=== PATIENT | female | born 1940 | race Two or more races ===

== ENCOUNTER 2016-09-30 15:58 | Emergency (ER) | payer MEDICARE, OTHER ==
[~2016-09-30] VITALS: Ht 170.2 cm; Wt 77.1 kg
[2016-09-30 16:04] VITALS: BP 113/52
[2016-09-30] MEDS ORDERED: HYDROCODONE/APAP 5/325MG 1 EACH TABLET PO ONE (16:30)
[2016-09-30] MEDS ORDERED: HYDROCODONE/APAP 5/325MG 1 EACH TABLET ONE (16:30)
[2016-09-30] MEDS ORDERED: LIDOCAINE 1% INJ 50 ML MDV IJ ONE (17:30)
== END 2016-09-30 18:10 | disposition home or self-care (01) ==
LOC: ER 16:00
DX: S63.284A Dislocation of proximal interphalangeal joint of right ring finger, initial encounter (principal); S62.614A Displaced fracture of proximal phalanx of right ring finger, initial encounter for closed fracture; S80.02XA Contusion of left knee, initial encounter; S70.02XA Contusion of left hip, initial encounter; I10 Essential (primary) hypertension; F32.9 Major depressive disorder, single episode, unspecified; Z88.0 Allergy status to penicillin; W01.0XXA Fall on same level from slipping, tripping and stumbling without subsequent striking against object, initial encounter; Y93.89 Activity, other specified; Y92.89 Other specified places as the place of occurrence of the external cause; Y99.9 Unspecified external cause status
CPT/HCPCS: 26770; 72125; 72170; 73140; 73564; 99284; A4606; J3490; Z7610

== ENCOUNTER 2017-03-18 18:35 | Emergency (ER) | payer MEDICARE, OTHER ==
[~2017-03-18] VITALS: Ht 167.6 cm; Wt 70.3 kg
--- NOTE | 2017-03-18 18:50 | NUR ---
bib family from home dt fever x 5 days and coughing out blood x 2 days. Patient is aao4. Appears in no apparent distress, respiration even and unlabored. Skin is warm to touch and non diaphoretic. Afebrile at this time. Gowned pt and placed on tele monitor. vss
--- NOTE | 2017-03-18 18:53 | NUR ---
paint laboratory technician at
--- NOTE | 2017-03-18 18:57 | NUR ---
Urine sample obtained, sent.
--- NOTE | 2017-03-18 18:59 | NUR ---
ELECTRICAL SOFTWARE ENGINEER AT
[2017-03-18] MEDS ORDERED: IV NS 0.9% 1,000 ML BAG IV ONE (19:00)
--- NOTE | 2017-03-18 19:00 | NUR ---
PSYCHOLOGIST EXPERIMENTAL AT BS
--- NOTE | 2017-03-18 19:00 | NUR ---
IV ACCESS STARTED, BLOOD DRAWN FOR LABS. PT MEDICATED ORDERED.
[2017-03-18 19:04] LABS: BASOPHILS # (AUTO) 0.1 /CMM (0.0-0.2); BASOPHILS % (AUTO) 0.9 % (0.0-2.0); EOSINOPHILS # (AUTO) 0.1 /CMM (0.0-0.7); EOSINOPHILS % (AUTO) 0.6 % (0.0-6.0); HEMATOCRIT 47 % (33-45); HEMOGLOBIN 14.8 g/dL (11.5-14.8); LYMPHOCYTES # (AUTO) 2.4 /CMM (0.8-4.8); LYMPHOCYTES % (AUTO) 18.6 % (20.0-44.0); MEAN CORPUSCULAR HEMOGLOBIN 29 PG (26.0-33.0); MEAN CORPUSCULAR HGB CONC 32 g/dl (31.0-36.0); MEAN CORPUSCULAR VOLUME 92 fL (82-100); MONOCYTES # (AUTO) 1.4 /CMM (0.1-1.30); MONOCYTES % (AUTO) 11.1 % (2.0-12.0); NEUTROPHILS # (AUTO) 8.7 /CMM (1.8-8.9); NEUTROPHILS % (AUTO) 68.8 % (43.0-81.0); PLATELET COUNT (AUTO) 340 /CMM (150-450); RDW COEFFICIENT OF VARIATION 13.4 (11.5-15.0); RED BLOOD CELL COUNT(AUTO) 5.09 MIL/uL (4.0-5.2); WHITE BLOOD COUNT (AUTO) 12.7 K/uL (4.3-11.0)
[2017-03-18 19:06] LABS: APPEARANCE,URINE Clear (CLEAR); BILIRUBIN,URINE Negative (NEGATIVE); BLOOD, URINE Large Ery/uL (NEGATIVE); COLOR,URINE Yellow (YELLOW); KETONES,URINE Negative (NEGATIVE); LEUKOCYTE ESTERASE ,URINE Negative (NEGATIVE); NITRITE, URINE Negative (NEGATIVE); PH,URINE 5.5 (5.0-8.0); PROTEIN,URINE >=300 mg/dl (NEGATIVE); UGLUCOSE Negative (NEGATIVE); UROBILINOGEN,URINE 0.2 EU/dL (0.2)
[2017-03-18 19:15] LABS: CALCIUM, SERUM 8.8 mg/dL (8.5-10.1); CARBON DIOXIDE 32 mmol/L (21-32); CHLORIDE 107 mmol/L (98-107); CREATININE 0.9 mg/dL (0.6-1.3); GLUCOSE 96 mg/dL (74-106); POTASSIUM 3.7 mmol/L (3.5-5.1); SODIUM SERUM 144 mmol/L (136-145); UREA NITROGEN, BLOOD 15 mg/dL (7-18)
[2017-03-18 19:20] LABS: ALANINE AMINOTRANSFERASE 26 U/L (12-78); ALBUMIN 3.5 g/dL (3.4-5.0); ALKALINE PHOSPHATASE 70 U/L (46-116); ASPARTATE AMINOTRANSFERASE 20 U/L (15-37); BILIRUBIN,DIRECT 0.2 mg/dL (0.0-0.2); BILIRUBIN,TOTAL 0.8 mg/dL (0.2-1.0); INR 3.97 (0.87-1.13); PROTHROMBIN TIME 44.4 SECS (9.5-12.7); TOTAL PROTEIN, SERUM 8.1 g/dL (6.4-8.2)
[2017-03-18 19:22] LABS: TROPONIN I < 0.017 ng/mL (0.00-0.056)
[2017-03-18 19:24] LABS: BACTERIA,URINE Few /HPF (None Seen); SQUAMOUS EPITHELIAL CELL,UR Few /HPF (None Seen)
--- NOTE | 2017-03-18 19:27 | NUR ---
PT REPORT RECIVED FROM OSVALDO CASEY FOR TIERNEY, PT IS IN BED, ON MONITOR, IN GOWN, PT FAMILY AT BEDSIDE, WILL CONTINUE TO MONITOR.
--- NOTE | 2017-03-18 19:52 | NUR ---
PT BP IS HIGH, MD MADE AWARE NO ORDERS AT THIS TIME WILL CONTINUE TO MONITOR.
[2017-03-18] MEDS ORDERED: predniSONE 20 MG TABLET ONE (20:42)
[2017-03-18] MEDS ORDERED: AZITHROMYCIN 250 MG TABLET ONE (20:42)
--- NOTE | 2017-03-18 20:50 | NUR ---
Patient discharged to home in stable condition. Written and verbal after care instructions given. Patient verbalizes understanding of instruction.IV removed. Catheter intact and site benign. Pressure and 4x4 applied to site. No bleeding noted.
[2017-03-18 20:51] VITALS: BP 170/84
[2017-03-18] MEDS ORDERED: AZITHROMYCIN 250 MG TABLET PO ONE (21:00)
[2017-03-18] MEDS ORDERED: predniSONE 20 MG TABLET PO ONE (21:00)
== END 2017-03-18 20:51 | disposition home or self-care (01) ==
LOC: ER 18:36
DX: J44.1 Chronic obstructive pulmonary disease with (acute) exacerbation (principal); J20.9 Acute bronchitis, unspecified; R79.1 Abnormal coagulation profile; I48.91 Unspecified atrial fibrillation; F32.9 Major depressive disorder, single episode, unspecified; I10 Essential (primary) hypertension; Z79.01 Long term (current) use of anticoagulants; Z86.73 Personal history of transient ischemic attack (TIA), and cerebral infarction without residual deficits; Z88.0 Allergy status to penicillin; Z95.0 Presence of cardiac pacemaker
CPT/HCPCS: 36415; 71010-TC; 80048-TC; 80076-TC; 81000-TC; 83605-TC; 84484-TC; 85025-TC; 85730-TC; 87040-TC; 87086-TC; A4606; J7030; Z7610

== ENCOUNTER 2018-07-26 12:52 | Outpatient (CLI) | payer MEDICARE, OTHER | END 2018-07-26 23:59 | disposition home health service (06) | LOC: WOU 12:52 | PROVIDERS: ATTEND Surgery | DX: S40.022D Contusion of left upper arm, subsequent encounter (principal); M79.602 Pain in left arm; R26.2 Difficulty in walking, not elsewhere classified; M62.50 Muscle wasting and atrophy, not elsewhere classified, unspecified site; Z79.01 Long term (current) use of anticoagulants; W19.XXXD Unspecified fall, subsequent encounter | CPT/HCPCS: A6402; G0463; Z7610 ==

== ENCOUNTER 2018-08-16 13:00 | Outpatient (CLI) | payer MEDICARE, OTHER | END 2018-08-16 23:59 | disposition home health service (06) | LOC: WOU 13:00 | PROVIDERS: ATTEND Surgery | DX: S41.112A Laceration without foreign body of left upper arm, initial encounter (principal); M79.602 Pain in left arm; R26.2 Difficulty in walking, not elsewhere classified; M62.50 Muscle wasting and atrophy, not elsewhere classified, unspecified site; W19.XXXA Unspecified fall, initial encounter; Y92.89 Other specified places as the place of occurrence of the external cause; Z79.01 Long term (current) use of anticoagulants | CPT/HCPCS: 11043; A6402; Z7610 ==

== ENCOUNTER 2018-08-19 13:00 | Outpatient (CLI) | payer MEDICARE, OTHER | END 2018-08-19 23:59 | disposition home health service (06) | LOC: WOU 13:00 | PROVIDERS: ATTEND Surgery | DX: S41.112A Laceration without foreign body of left upper arm, initial encounter (principal); W19.XXXA Unspecified fall, initial encounter; Y92.89 Other specified places as the place of occurrence of the external cause; S40.022D Contusion of left upper arm, subsequent encounter; W19.XXXD Unspecified fall, subsequent encounter; Z79.01 Long term (current) use of anticoagulants; M62.50 Muscle wasting and atrophy, not elsewhere classified, unspecified site; R26.2 Difficulty in walking, not elsewhere classified; I48.2 Chronic atrial fibrillation; Z87.891 Personal history of nicotine dependence; Z86.718 Personal history of other venous thrombosis and embolism; J44.9 Chronic obstructive pulmonary disease, unspecified; Z95.0 Presence of cardiac pacemaker; Z88.0 Allergy status to penicillin; M79.602 Pain in left arm | CPT/HCPCS: 11042; A6402; Z7610 ==

== ENCOUNTER 2018-08-30 10:45 | Outpatient (CLI) | payer MEDICARE, OTHER | END 2018-08-30 23:59 | disposition home health service (06) | LOC: WOU 10:45 | PROVIDERS: ATTEND Surgery | DX: S41.112A Laceration without foreign body of left upper arm, initial encounter (principal); W19.XXXA Unspecified fall, initial encounter; Y92.89 Other specified places as the place of occurrence of the external cause; Z79.01 Long term (current) use of anticoagulants; S40.022D Contusion of left upper arm, subsequent encounter; W19.XXXD Unspecified fall, subsequent encounter; M79.602 Pain in left arm; M62.50 Muscle wasting and atrophy, not elsewhere classified, unspecified site; R26.2 Difficulty in walking, not elsewhere classified; I48.2 Chronic atrial fibrillation; I10 Essential (primary) hypertension; Z87.891 Personal history of nicotine dependence; Z88.0 Allergy status to penicillin | CPT/HCPCS: 11042; A6402 ==

== ENCOUNTER 2018-09-13 14:20 | Outpatient (CLI) | payer MEDICARE, OTHER | END 2018-09-13 23:59 | disposition home or self-care (01) | LOC: WOU 14:20 | PROVIDERS: ATTEND Surgery | DX: S40.022D Contusion of left upper arm, subsequent encounter (principal); M79.602 Pain in left arm; R26.2 Difficulty in walking, not elsewhere classified; M62.50 Muscle wasting and atrophy, not elsewhere classified, unspecified site; Z79.01 Long term (current) use of anticoagulants; I10 Essential (primary) hypertension; Z87.891 Personal history of nicotine dependence; W19.XXXD Unspecified fall, subsequent encounter | CPT/HCPCS: G0463; Z7610 ==

== ENCOUNTER 2018-09-27 13:17 | Outpatient (CLI) | payer MEDICARE, OTHER | END 2018-09-27 23:59 | disposition home health service (06) | LOC: WOU 13:17 | PROVIDERS: ATTEND Surgery | DX: S40.022D Contusion of left upper arm, subsequent encounter (principal); M79.602 Pain in left arm; M62.50 Muscle wasting and atrophy, not elsewhere classified, unspecified site; I25.10 Atherosclerotic heart disease of native coronary artery without angina pectoris; I10 Essential (primary) hypertension; I48.91 Unspecified atrial fibrillation; Z79.01 Long term (current) use of anticoagulants; W19.XXXD Unspecified fall, subsequent encounter | CPT/HCPCS: G0463; Z7610 ==

== ENCOUNTER 2018-11-08 12:05 | Outpatient (CLI) | payer MEDICARE, OTHER | END 2018-11-08 23:59 | disposition home or self-care (01) | LOC: WOU 12:05 | PROVIDERS: ATTEND Surgery | DX: S40.022D Contusion of left upper arm, subsequent encounter (principal); M79.602 Pain in left arm; R26.2 Difficulty in walking, not elsewhere classified; M62.50 Muscle wasting and atrophy, not elsewhere classified, unspecified site; I48.91 Unspecified atrial fibrillation; Z79.01 Long term (current) use of anticoagulants; I10 Essential (primary) hypertension; X58.XXXD Exposure to other specified factors, subsequent encounter | CPT/HCPCS: G0463 ==

== ENCOUNTER 2022-07-10 13:46 | Outpatient (CLI) | payer MEDICARE, OTHER | END 2022-07-10 23:59 | disposition home or self-care (01) | LOC: WOU 13:46 | PROVIDERS: ATTEND Surgery | DX: S80.11XD Contusion of right lower leg, subsequent encounter (principal); W22.09XD Striking against other stationary object, subsequent encounter; I48.91 Unspecified atrial fibrillation; Z79.01 Long term (current) use of anticoagulants; M62.50 Muscle wasting and atrophy, not elsewhere classified, unspecified site; I25.10 Atherosclerotic heart disease of native coronary artery without angina pectoris; I10 Essential (primary) hypertension; Z87.891 Personal history of nicotine dependence | CPT/HCPCS: G0463 ==